=== PATIENT | female | born 1965 | race Caucasian/White ===

== ENCOUNTER 2017-02-01 14:28 | Emergency (ER) | payer OTHER ==
[2017-02-01 14:41] VITALS: BP 125/70; PULSE 94; RESP 16; TEMP 98.5; O2SAT 99
[2017-02-01] MEDS ORDERED: Naproxen 500 MG TAB PO ONE ×2 (14:47→15:11)
--- NOTE | 2017-02-01 15:21 | ED PDOC ---
Lower Extremity Pain/Injury Time Seen by Provider: 02/01/17 14:40 Chief Complaint (Nursing): Lower Extremity Problem/Injury Chief Complaint (Provider): Lower Extremity Problem/Injury History Per: Patient History/Exam Limitations: no limitations Onset/Duration Of Symptoms: Days (x6) Additional Complaint(s): Christina Pagan, 51 year old female presents to the ED for atraumatic right knee pain occurring since Friday. The patient reports the pain worsens with ambulation and describes the pain as stiffness. She denies trauma, fever, or rash. PMD: [facility] Past Medical History Reviewed: Historical Data, Nursing Documentation, Vital Signs Vital Signs: Last Vital Signs Temp 98.5 F 02/01/17 14:38 Pulse 94 H 02/01/17 14:38 Resp 16 02/01/17 14:38 BP 125/70 02/01/17 14:38 Pulse Ox 99 02/01/17 14:38 - Medical History PMH: Diabetes - Family History Family History: States: No Known Family Hx - Social History Current smoker - smoking cessation education provided: No Alcohol: None Drugs: Denies - Immunization History Hx Tetanus Toxoid Vaccination: No Hx Influenza Vaccination: No Hx Pneumococcal Vaccination: No - Home Medications Home Medications: Ambulatory Orders Medication Instructions Recorded Oxycodone HCl/Acetaminophen 1 tab PO BID #10 tab 05/21/15 [Percocet 325 mg-5 mg] Naproxen [Naprosyn] 500 mg PO BID PRN #30 tab 02/01/17 - Allergies Allergies/Adverse Reactions: Allergies Allergy/AdvReac Type Severity Reaction Status Date / Time No Known Allergies Allergy Verified 05/21/15 15:09 Review of Systems ROS Statement: Except As Marked, All Systems Reviewed And Found Negative Constitutional: Negative for: Fever Musculoskeletal: Positive for: Leg Pain (right knee pain) Skin: Negative for: Rash Physical Exam - Reviewed Nursing Documentation Reviewed: Yes Vital Signs Reviewed: Yes - Physical Exam Appears: Positive for: Well, Non-toxic, No Acute Distress Head Exam: Positive for: ATRAUMATIC, NORMAL INSPECTION, NORMOCEPHALIC Skin: Positive for: Normal Color, Warm. Negative for: Rash Pulses-Dorsalis Pedis (L): 2+ Pulses-Dorsalis Pedis (R): 2+ Extremity: Positive for: Normal ROM (full, actively of R knee), Tenderness ( minimal tenderness on medial surface). Negative for: Calf Tenderness, Deformity (to right knee), Swelling (to right knee), Other (no warmth or erythema to right knee ) Neurologic/Psych: Positive for: Alert, Oriented - ECG O2 Sat by Pulse Oximetry: 99 (RA) Pulse Ox Interpretation: Normal - Radiology X-Ray: Interpreted by Me (Knee x-ray) X-Ray Interpretation: No Acute Disease Medical Decision Making Medical Decision Making: Impression: Right knee pain Plan: * Knee 3 Views RT [RAD] Stat * Naproxen 500 mg PO Once * Reevaluation Scribe Attestation: Documented by Roberta Callejas, acting as a scribe for Mohamud Mariee PA-C. Provider Scribe Attestation: All medical record entries made by the Scribe were at my direction and personally dictated by me. I have reviewed the chart and agree that the record accurately reflects my personal performance of the history, physical exam, medical decision making, and the department course for this patient. I have also personally directed, reviewed, and agree with the discharge instructions and disposition. Disposition - Clinical Impression Clinical Impression: Knee pain - Patient ED Disposition Is Patient to be Admitted: No - Disposition Referrals: [facility] [Outside] [facility] [Outside] Thomas Lee III, MD [Staff Provider] - Disposition: Routine/Home Disposition Time: 15:27 Condition: STABLE Prescriptions: Naproxen [Naprosyn] 500 mg PO BID PRN #30 tab PRN Reason: Pain Instructions: Knee Pain (ED) Print Language: ARGENTINE
--- NOTE | 2017-02-02 08:48 | RAD ---
PROCEDURE: Right Knee Radiographs. HISTORY: pain COMPARISON: None. FINDINGS: BONES: Normal. No fracture. JOINTS: Normal. No osteoarthritis. JOINT EFFUSION: None. OTHER FINDINGS: None. IMPRESSION: Normal radiographs of the right knee.
== END 2017-02-01 16:36 | disposition home or self-care (01) ==
LOC: H.ER 14:28
DX: M25.561 Pain in right knee (principal); E11.9 Type 2 diabetes mellitus without complications

== ENCOUNTER 2017-06-28 18:01 | Emergency (ER) | payer SELFPAY ==
[2017-06-28 18:16] VITALS: PULSE 79; RESP 16; TEMP 97.2; O2SAT 100
[2017-06-28 18:17] VITALS: BP 133/74
--- NOTE | 2017-06-28 18:36 | ED PDOC ---
Lower Extremity Pain/Injury Time Seen by Provider: 06/28/17 18:19 Chief Complaint (Nursing): Lower Extremity Problem/Injury Chief Complaint (Provider): right leg pain Additional Complaint(s): 51yo F in Ed for evla of left leg pain x 2 days noted after waking in the AM with burning like pain felt "deep" in her muscle made worse with walking and lifting leg. denies direct injury or fall denies fever or chills denies calf pain denies abd pain denies hx of back pain. Past Medical History Vital Signs: Last Vital Signs Temp 97.2 F L 06/28/17 18:15 Pulse 79 06/28/17 18:15 Resp 16 06/28/17 18:15 BP 133/74 06/28/17 18:15 Pulse Ox 100 06/28/17 18:15 - Medical History PMH: Diabetes - Family History Family History: States: Unknown Family Hx - Immunization History Hx Tetanus Toxoid Vaccination: No Hx Influenza Vaccination: No Hx Pneumococcal Vaccination: No - Home Medications Home Medications: Ambulatory Orders Medication Instructions Recorded Oxycodone HCl/Acetaminophen 1 tab PO BID #10 tab 05/21/15 [Percocet 325 mg-5 mg] Naproxen [Naprosyn] 500 mg PO BID PRN #30 tab 02/01/17 Cyclobenzaprine [Cyclobenzaprine 10 mg PO BID #14 tab 06/28/17 HCl] Ibuprofen [Motrin] 400 mg PO Q6 #30 tab 06/28/17 - Allergies Allergies/Adverse Reactions: Allergies Allergy/AdvReac Type Severity Reaction Status Date / Time No Known Allergies Allergy Verified 05/21/15 15:09 Wells Criteria for PE - Wells Criteria for Pulmonary Embolism Clinical Signs and Symptoms of DVT: No P.E is #1 Diagnosis, or Equally Likely: No Heart Rate >100: No Immobilization at least 3 days;Surgery previous 4 weeks: No Previous, objectively diagnosed PE or DVT: No Hemoptysis: No Malignancy w/treatment within 6 months, or palliative: No Total Score: 0 Review of Systems ROS Statement: Except As Marked, All Systems Reviewed And Found Negative Musculoskeletal: Positive for: Leg Pain Physical Exam - Reviewed Nursing Documentation Reviewed: Yes Vital Signs Reviewed: Yes - Physical Exam Appears: Positive for: Non-toxic, No Acute Distress, Uncomfortable Skin: Positive for: Normal Color, Warm, DRY Neck: Positive for: Normal Cardiovascular/Chest: Positive for: Regular Rate, Rhythm Respiratory: Positive for: CNT, Normal Breath Sounds Extremity: Positive for: Other (left leg: no calk pain no straight leg raise, nuevoasc intact. no back midline tenderness. ) Neurologic/Psych: Positive for: Alert, Oriented - ECG O2 Sat by Pulse Oximetry: 100 Medical Decision Making Medical Decision Making: pt most likely with sciatica will get ultram for pain and flexril and given stretching exercises. advised to f.u with PTx Disposition - Clinical Impression Clinical Impression: Sciatic leg pain - Patient ED Disposition Is Patient to be Admitted: No Counseled Patient/Family Regarding: Diagnosis, Need For Followup, Rx Given - Disposition Referrals: [facility] [Outside] Disposition: Routine/Home Disposition Time: 18:37 Condition: STABLE Prescriptions: Cyclobenzaprine [Cyclobenzaprine HCl] 10 mg PO BID #14 tab Ibuprofen [Motrin] 400 mg PO Q6 #30 tab Instructions: Sciatica (ED) Print Language: YAKUT
== END 2017-06-28 19:53 | disposition home or self-care (01) ==
LOC: H.ER 18:01
DX: M54.31 Sciatica, right side (principal); E11.9 Type 2 diabetes mellitus without complications

== ENCOUNTER 2017-07-27 16:48 | Emergency (ER) | payer SELFPAY ==
[2017-07-27 16:53] VITALS: BP 118/77; PULSE 89; RESP 16; TEMP 98.3; O2SAT 99
[2017-07-27] MEDS ORDERED: Lidocaine 5% Patch TD STA (16:57)
--- NOTE | 2017-07-27 17:27 | ED PDOC ---
HPI: General Adult Time Seen by Provider: 07/27/17 16:53 Chief Complaint (Nursing): Lower Extremity Problem/Injury Chief Complaint (Provider): Knee pain History Per: Patient History/Exam Limitations: no limitations Onset/Duration Of Symptoms: Days (x4) Current Symptoms Are (Timing): Still Present Additional Complaint(s): Christina Merida is a 51 year old female who presents to the emergency department complaining of atraumatic left knee pain for the past 4 days. States she is taking Advil without relief. Denies any associated fever, trauma, numbness, or tingling. No calf pain or rash. PMD: [facility] Past Medical History Reviewed: Historical Data, Nursing Documentation, Vital Signs Vital Signs: Last Vital Signs Temp 98.3 F 07/27/17 16:50 Pulse 89 07/27/17 16:50 Resp 16 07/27/17 16:50 BP 118/77 07/27/17 16:50 Pulse Ox 99 07/27/17 18:30 - Medical History PMH: Diabetes - Family History Family History: States: Unknown Family Hx - Social History Current smoker - smoking cessation education provided: No Alcohol: None Drugs: Denies - Immunization History Hx Tetanus Toxoid Vaccination: No Hx Influenza Vaccination: No Hx Pneumococcal Vaccination: No - Home Medications Home Medications: Ambulatory Orders Medication Instructions Recorded Oxycodone HCl/Acetaminophen 1 tab PO BID #10 tab 05/21/15 [Percocet 325 mg-5 mg] Naproxen [Naprosyn] 500 mg PO BID PRN #30 tab 02/01/17 Cyclobenzaprine [Cyclobenzaprine 10 mg PO BID #14 tab 06/28/17 HCl] Ibuprofen [Motrin] 400 mg PO Q6 #30 tab 06/28/17 Meloxicam [Mobic] 7.5 mg PO DAILY PRN #14 tab 07/27/17 - Allergies Allergies/Adverse Reactions: Allergies Allergy/AdvReac Type Severity Reaction Status Date / Time No Known Allergies Allergy Verified 05/21/15 15:09 Review of Systems ROS Statement: Except As Marked, All Systems Reviewed And Found Negative Constitutional: Negative for: Fever Musculoskeletal: Positive for: Leg Pain (Left knee pain). Negative for: Other ( calf pain) Skin: Negative for: Rash Neurological: Negative for: Numbness (and tingling) Physical Exam - Reviewed Nursing Documentation Reviewed: Yes Vital Signs Reviewed: Yes - Physical Exam Appears: Positive for: Non-toxic, No Acute Distress Pulses-Dorsalis Pedis (L): 2+ Pulses-Dorsalis Pedis (R): 2+ Extremity: Positive for: Normal ROM (Able to actively extend left leg to 0 degrees), Tenderness (Minimal tenderness to medial surface of left knee). Negative for: Calf Tenderness, Swelling (Left knee with no swelling, break in skin integrity, warmth, or erythema) - ECG O2 Sat by Pulse Oximetry: 99 (RA) Pulse Ox Interpretation: Normal Medical Decision Making Medical Decision Making: Time: 16:56 Initial Plan: --Lidoderm patch --Toradol 30 mg IM --X-Ray Left Knee --Reevaluation X-ray shows decreased joint space, no fracture. Time: 17:25 Patient provided with crutches. Stable for discharge home, given rx for Meloxicam. Patient instructed to follow up with orthopedist, referral provided. There is agreement to discharge plan. Return if symptoms persist or worsen. Scribe Attestation: Documented by Nicky Ruiz, acting as a scribe for Mohamud Mariee PA-C Provider Scribe Attestation: All medical record entries made by the Scribe were at my direction and personally dictated by me. I have reviewed the chart and agree that the record accurately reflects my personal performance of the history, physical exam, medical decision making, and the department course for this patient. I have also personally directed, reviewed, and agree with the discharge instructions and disposition. Disposition - Clinical Impression Clinical Impression: Knee pain - Patient ED Disposition Is Patient to be Admitted: No Counseled Patient/Family Regarding: Studies Performed, Diagnosis, Need For Followup, Rx Given - Disposition Referrals: [facility] [Outside] Dio Steiner MD [Staff Provider] - Disposition: Routine/Home Disposition Time: 17:25 Condition: STABLE Additional Instructions: Follow up with orthopedist for further evaluation. Return to ED immediately for any concerns or questions. Prescriptions: Meloxicam [Mobic] 7.5 mg PO DAILY PRN #14 tab PRN Reason: Pain, Mild (1-3) Instructions: Knee Pain (ED) Forms: [facility] [employer] (Burmese) Print Language: OCCITAN
--- NOTE | 2017-07-27 17:29 | RAD ---
PROCEDURE: Left Knee Radiographs. HISTORY: Pain. COMPARISON: None. FINDINGS: BONES: No acute fracture. JOINTS: Unremarkable. JOINT EFFUSION: None. OTHER FINDINGS: None. IMPRESSION: No demonstrated fracture or dislocation.
== END 2017-07-27 17:45 | disposition home or self-care (01) ==
LOC: H.ER 16:48
DX: M25.562 Pain in left knee (principal); E11.9 Type 2 diabetes mellitus without complications
CPT/HCPCS: 73562; 96372; 99285; J1885

== ENCOUNTER 2018-01-07 13:29 | Emergency (ER) | payer SELFPAY ==
[2018-01-07 13:50] VITALS: BP 131/77; PULSE 73; RESP 18; TEMP 98.4; O2SAT 98
[2018-01-07] MEDS ORDERED: Naproxen 500 MG TAB PO ONE (14:12)
[2018-01-07] MEDS: Naproxen 500 MG TAB PO STA (14:16)
--- NOTE | 2018-01-07 14:32 | ED PDOC ---
Lower Extremity Pain/Injury Time Seen by Provider: 01/07/18 13:51 Chief Complaint (Nursing): Lower Extremity Problem/Injury Chief Complaint (Provider): foot pain History Per: Patient History/Exam Limitations: no limitations Onset/Duration Of Symptoms: Days (2x) Current Symptoms Are (Timing): Still Present Additional Complaint(s): 52 year old female presents to the ED for an evaluation of left foot pain. Patient states she was walking in [facility] in her sandals. She felt the pain on her foot after 2hrs. Reports the pain is localized to the heel. Denies any trauma. PMD: [facility] Past Medical History Reviewed: Historical Data, Nursing Documentation, Vital Signs Vital Signs: Last Vital Signs Temp 98.4 F 01/07/18 13:47 Pulse 73 01/07/18 13:47 Resp 18 01/07/18 13:47 BP 131/77 01/07/18 13:47 Pulse Ox 98 01/07/18 13:47 - Medical History PMH: Diabetes - Family History Family History: States: Unknown Family Hx - Immunization History Hx Tetanus Toxoid Vaccination: No Hx Influenza Vaccination: No Hx Pneumococcal Vaccination: No - Home Medications Home Medications: Ambulatory Orders Medication Instructions Recorded Oxycodone HCl/Acetaminophen 1 tab PO BID #10 tab 05/21/15 [Percocet 325 mg-5 mg] Naproxen [Naprosyn] 500 mg PO BID PRN #30 tab 02/01/17 Cyclobenzaprine [Cyclobenzaprine 10 mg PO BID #14 tab 06/28/17 HCl] Ibuprofen [Motrin] 400 mg PO Q6 #30 tab 06/28/17 Meloxicam [Mobic] 7.5 mg PO DAILY PRN #14 tab 07/27/17 Meloxicam [Mobic] 7.5 mg PO DAILY PRN #14 tab 01/07/18 - Allergies Allergies/Adverse Reactions: Allergies Allergy/AdvReac Type Severity Reaction Status Date / Time No Known Allergies Allergy Verified 05/21/15 15:09 Review of Systems ROS Statement: Except As Marked, All Systems Reviewed And Found Negative Constitutional: Negative for: Other (trauma) Musculoskeletal: Positive for: Foot Pain (left) Physical Exam - Reviewed Nursing Documentation Reviewed: Yes Vital Signs Reviewed: Yes - Physical Exam Appears: Positive for: Non-toxic, No Acute Distress Head Exam: Positive for: ATRAUMATIC, NORMAL INSPECTION, NORMOCEPHALIC Skin: Positive for: Normal Color, Warm, Dry. Negative for: Rash Eye Exam: Positive for: Normal appearance Pulses-Dorsalis Pedis (L): 2+ Extremity: Positive for: Normal ROM, Tenderness (left foot and left heel). Negative for: Pedal Edema, Deformity, Swelling Neurologic/Psych: Positive for: Alert, Oriented (x3). Negative for: Motor/ Sensory Deficits - ECG O2 Sat by Pulse Oximetry: 98 (RA) Pulse Ox Interpretation: Normal Medical Decision Making Medical Decision Making: Time: 1404 Initial Impression: left foot pain Initial Plan: --Naproxen 500mg PO --Foot Left 3 Views [RAD] --Reevaluation Clinical Impression: heel pain, bilateral Upon provider evaluation patient is medically stable, and requires no further treatment in the ED at this time. Patient will be discharged with Mobic 7.5mg for pain. Counseling was provided and all questions were answered regarding diagnosis and need for follow up with podiatry clinic. There is agreement to discharge plan. Return if symptoms persist or worsen. Scribe Attestation: Documented by Andreas Wilson, acting as a scribe for Mohamud Mariee PA-C. Provider Scribe Attestation: All medical record entries made by the Scribe were at my direction and personally dictated by me. I have reviewed the chart and agree that the record accurately reflects my personal performance of the history, physical exam, medical decision making, and the department course for this patient. I have also personally directed, reviewed, and agree with the discharge instructions and disposition. Disposition - Clinical Impression Clinical Impression: Heel pain, bilateral - Patient ED Disposition Is Patient to be Admitted: No - Disposition Referrals: Podiatry Clinic [Outside] Disposition: Routine/Home Disposition Time: 15:07 Condition: STABLE Additional Instructions: Follow up with the podiatry clinic for further evaluation. Return to ED immediately if symptoms worsen. Prescriptions: Meloxicam [Mobic] 7.5 mg PO DAILY PRN #14 tab PRN Reason: Pain, Mild (1-3) Instructions: Heel Pain (Caused by Plantar Fasciitis) (DC) Forms: [facility] (Hong Konger) Print Language: TURKISH
--- NOTE | 2018-01-07 15:09 | RAD ---
PROCEDURE: Left Foot Radiographs. HISTORY: trauma COMPARISON: None. FINDINGS: BONES: . No fracture. Os trigonum noted JOINTS: Normal. SOFT TISSUES: Normal. OTHER FINDINGS: Achilles tendon insertional enthesophyte noted. IMPRESSION: No fracture or dislocation appreciated. Other findings -as above.
== END 2018-01-07 15:15 | disposition home or self-care (01) ==
LOC: H.ER 13:29
DX: M79.672 Pain in left foot (principal); E11.9 Type 2 diabetes mellitus without complications

== ENCOUNTER 2018-06-22 07:55 | Day surgery (SDC) | payer SELFPAY ==
[2018-06-22 08:48] VITALS: BMI 24.7
[2018-06-22] MEDS ORDERED: Lactated Ringer's 500 ML IV ONE (08:52)
[2018-06-22] MEDS ORDERED: Propofol 10 mg/ml Inj (20 ML) ONE (09:57)
[2018-06-22] MEDS ORDERED: Midazolam 2 MG/2 ML VIAL ONE (09:57)
[2018-06-22 10:29] VITALS: RESP 16; TEMP 97; O2SAT 99
[2018-06-22 10:52] VITALS: BP 106/57; PULSE 63
== END 2018-06-22 11:08 | disposition home or self-care (01) ==
LOC: H.ENDO 07:55
PROVIDERS: ATTEND Internal Medicine Gastroenterology
DX: Z12.11 Encounter for screening for malignant neoplasm of colon (principal); Z80.0 Family history of malignant neoplasm of digestive organs; K63.89 Other specified diseases of intestine; K64.8 Other hemorrhoids; E11.9 Type 2 diabetes mellitus without complications; E78.5 Hyperlipidemia, unspecified; I10 Essential (primary) hypertension
CPT/HCPCS: 45380; 82948; 88305; J2001; J2250; J2704; J7120